=== PATIENT | female | born 1985 ===

== ENCOUNTER 2017-05-05 16:15 | Inpatient (IN) | payer OTHER ==
--- NOTE | 2017-05-05 16:34 | ED PDOC ---
HPI: Psych/Substance Abuse Time Seen by Provider: 05/05/17 16:21 Chief Complaint (Nursing): Psychiatric Evaluation Chief Complaint (Provider): Suicidal thoughts History Per: Patient History/Exam Limitations: no limitations Current Symptoms Are (Timing): Still Present Additional Complaint(s): Pt. with suicidal thoughts, stating she wants to be with her mother, who Aug 2. Pt. denies any chest pain, dyspnea, weakness, pain, homicidal thoughts. No drugs or etoh. No meds to hurt self. Past Medical History Reviewed: Nursing Documentation, Vital Signs Vital Signs: Last Vital Signs Temp 100.1 F H 05/05/17 16:17 Pulse 98 H 05/05/17 16:17 Resp 16 05/05/17 16:17 BP 156/86 H 05/05/17 16:17 Pulse Ox 98 05/05/17 16:17 - Medical History PMH: No Chronic Diseases - Surgical History Surgical History: No Surg Hx - Family History Family History: States: Unknown Family Hx - Social History Current smoker - smoking cessation education provided: No Alcohol: None Drugs: Denies - Home Medications Home Medications: Ambulatory Orders Medication Instructions Recorded Cephalexin [cephalexin] 500 mg PO BID #20 cap 01/19/15 Ibuprofen [Motrin] 600 mg PO Q8 #30 tab 01/19/15 - Allergies Allergies/Adverse Reactions: Allergies Allergy/AdvReac Type Severity Reaction Status Date / Time No Known Allergies Allergy Verified 05/05/17 16:17 Review of Systems Constitutional: Negative for: Weakness Eyes: Negative for: Vision Change ENT: Negative for: Nose Pain, Nose Discharge, Nose Congestion Cardiovascular: Negative for: Chest Pain Respiratory: Negative for: Cough, Shortness of Breath Gastrointestinal: Negative for: Nausea, Vomiting, Abdominal Pain, Diarrhea Genitourinary Female: Negative for: Dysuria Musculoskeletal: Negative for: Neck Pain, Shoulder Pain Skin: Negative for: Rash Neurological: Negative for: Weakness, Numbness Psych: Positive for: Suicidal ideation Physical Exam - Reviewed Nursing Documentation Reviewed: Yes Vital Signs Reviewed: Yes - Physical Exam Appears: Positive for: Non-toxic, No Acute Distress Head Exam: Positive for: ATRAUMATIC, NORMAL INSPECTION, NORMOCEPHALIC Skin: Positive for: Normal Color, Warm, DRY Eye Exam: Positive for: EOMI, Normal appearance, PERRL ENT: Positive for: Normal ENT Inspection Neck: Positive for: Normal, Painless ROM Cardiovascular/Chest: Positive for: Regular Rate, Rhythm Respiratory: Positive for: CNT, Normal Breath Sounds Back: Positive for: Normal Inspection. Negative for: L CVA Tenderness, R CVA Tenderness Extremity: Positive for: Normal ROM. Negative for: Tenderness, Pedal Edema Neurologic/Psych: Positive for: Alert, Oriented - ECG O2 Sat by Pulse Oximetry: 98 Pulse Ox Interpretation: Normal - Progress ED Course And Treament: 1839: Stable. Crisis saw pt. Will admit. Medically stable for eval. Disposition - Clinical Impression Clinical Impression: Depression - Patient ED Disposition Is Patient to be Admitted: Yes - Disposition Disposition Time: 18:48 Condition: STABLE Forms: [employer] (Latvian) - Pt Status Changed To: Hospital Disposition Of: Inpatient - Admit Certification Admit to Inpatient:: After my assessment, the patient will require hospitalization for at least two midnights. This is because of the severity of symptoms shown, intensity of services needed, and/or the medical risk in this patient being treated as an outpatient. - POA Present On Arrival: None
[2017-05-05 19:09] LABS: BASO # 0.1 K/uL (0.0-0.2); BASO % 0.6 % (0.0-2.0); EOS # 0.1 K/uL (0.0-0.7); EOS % 0.4 % (0.0-4.0); LYMPH # 2.4 K/uL (1.0-4.3); MEAN CELL VOLUME 82.5 fl (81.0-99.0); MEAN CORPUSCULAR HEMOGLOBIN 26.3 pg (27.0-31.0); MEAN CORPUSCULAR HGB CONC 31.9 g/dL (33.0-37.0); MEAN PLATELET VOLUME 7.8 fl (7.2-11.7); MONO # 0.9 K/uL (0.0-0.8); MONO % 6.2 % (0.0-10.0); NEUT # 10.6 K/uL (1.8-7.0); NEUT % 75.8 % (50.0-75.0); RED CELL DISTRIBUTION WIDTH 16.4 % (11.5-14.5)
[2017-05-05 19:21] LABS: ALCOHOL SERUM < 10 mg/dl (0-10); BLOOD UREA NITROGEN 11 mg/dl (7-17); CALCIUM 8.8 mg/dL (8.4-10.2); CARBON DIOXIDE 24 mmol/L (22-30); CHLORIDE 105 mmol/L (98-107); GFR AFRICAN-AMERICAN > 60; GLUCOSE,RANDOM 107 mg/dL (65-105); POTASSIUM 3.9 MMOL/L (3.6-5.0); SODIUM 136 mmol/l (132-148)
[2017-05-05] MEDS ORDERED: Alum-Mag Hydrox-Simethicone Susp (30 mL) PO PRN (21:35)
[2017-05-05] MEDS ORDERED: DiphenhydrAMINE 50 mg/ml Inj IM PRN (21:35)
[2017-05-05] MEDS ORDERED: Magnesium Hydroxide Susp 30 ml UD PO PRN (21:35)
--- NOTE | 2017-05-05 22:03 | PCM.BM ---
<Alpesh Blankenshipar - Last Filed: 05/05/17 22:00> Treatment Plan Problems - Problems identified on initial assessmt Suicidal Ideation Date Initiated: 05/05/17 Time Initiated: 22:01 Assessment reference: NA Status: Active Priority: 1 Self Harm Date Initiated: 05/05/17 Time Initiated: 22:01 Assessment reference: NA Status: Active Priority: 2 Ineffective Coping Date Initiated: 05/05/17 Time Initiated: 22:02 Assessment reference: NA Status: Active Priority: 3 Treatment assets and liabiliti Patient Assests: cooperative, educated Patient Liabilities: live alone, poor support system - Milieu Protocol Maintain good personal hygiene: daily Encourage regular showers, daily Remind patient to perform daily oral care Maintain personal safety: every shift Educate patient to report safety concerns to staff, every shift Monitor environment for contraband/sharps Medication safety: Monitor for expected outcome, potential side effects: every shift, Assess barriers to learning: every shift, Assess readiness for medication education: every shift Discharge/Continuing Care - Education Needs Education Needs: Patient Medication, Patient Coping Skills, Patient Community resources, Patient Activities of Daily Living - Discharge Discharge Criteria: Free of Suicidal thoughts, Normal sleep pattern, Ability to care for self Discharge to:: Home <Javan Hanson - Last Filed: 05/07/17 15:32> Family Contact Family involvement: Famliy/SO not involved Family contact: Patient declines to allow family contact at present - Outside Agency Agency 1 Agency contact name: [facility] Agency contact number: [phone] <Tawnya Daniels - Last Filed: 05/10/17 10:14> Treatment assets and liabiliti Patient Assests: adapts well, cooperative, insightful, motivated, resourceful, self-reliant, ADL independent, physically healthy, negotiates basic needs, financial stabiity Patient Liabilities: live alone, poor support system, other (recent loss of mother) Family Contact Family involvement: Famliy/SO not involved Family contact: Patient declines to allow family contact at present - Goals for Treatment Patient goals for treatment: Patient encouraged to attend 3-4 groups/weekly to identify contributing factors to worsening depression/SI, develop effective coping skills and improve insight. Patient to be provided with referral for appropriate level of aftercare to ensure saftey in the community and reduce risk of future hospitalizations. Discharge/Continuing Care - Education Needs Education Needs: Patient Medication, Patient Diagnosis/Disease Process, Patient Coping Skills, Patient Community resources, Patient Aftercare Safety Plan - Discharge Discharge Criteria: Tolerates medication w/o severe side effects, Free of Suicidal thoughts, Normal sleep pattern, Ability to care for self
[2017-05-06 09:36] LABS: T4 8.06 ug/dl (5.5-11.0)
[2017-05-06 09:49] LABS: THYROID STIMULATING HORMONE 1.88 mIU/ML (0.46-4.68)
--- NOTE | 2017-05-06 11:35 | CP.PCM.CON ---
History of Present Illness - History of Present Illness History of Present Illness: Reason for Consult: per hospital protocol CC: feeling sad after I lost my mom HPI 31 year old female with PMH SOLUTION STRATEGIST shunt, Neuro Dr. Parker, presented to the ER after having suicidal ideations, stating she wanted to be with her mom who on April 21, about 15 days ago. Patient states she continues to feel sad and alone, and came to the ER because she was having those thoughts. She has no other complaints, and is currently HD stable. NAD. ROS: per HPI, 12 systems reviewed and negative PMH: SOLUTION STRATEGIST shunt, sees Dr. Parker PSH: SOLUTION STRATEGIST shunt, sees Dr. Parker FH: breast and uterine CA SH: denies tobacco, ETOH, IVDU Meds: as below Allergies: NKDA Vitals: reviewed and currently stable Exam: GEN: WDWN, alert, cooperative HEENT: NCAT, PERRL, EOMI NECK: supple, no JVD, no lymphadenopathy CARDIAC: +S1S2 RRR LUNG: CTAB No WRR ABD: SOFT NT ND BSX4 NO MASSES NO HSM EXT: +pedal pulses, equal strength NEURO: AAOx3 SKIN warm, dry PSYCH tearful, depressed mood, normal affect Labs: 05/05/17 19:00 05/05/17 19:00 Active Medications: 05/05/17 21:35 Acetaminophen [Tylenol 325mg tab] 650 mg PO Q4 PRN Aluminum Hydroxide/Magnesium [Maalox Plus 30 ml] 30 ml PO Q4 PRN DiphenhydrAMINE [Benadryl] 50 mg IM Q6 PRN DiphenhydrAMINE [Benadryl] 50 mg PO HS PRN DiphenhydrAMINE [Benadryl] 50 mg PO Q6 PRN Haloperidol Lactate [Haldol] 5 mg IM Q4 PRN Haloperidol [Haldol] 5 mg PO Q4 PRN LORazepam [Ativan] 2 mg IM Q4 PRN LORazepam [Ativan] 2 mg PO Q4 PRN Magnesium Hydroxide [Milk Of Magnesia] 30 ml PO HS PRN Assessment and Plan: 31 year old female with PMH SOLUTION STRATEGIST shunt, Neuro Dr. Parker, presented to the ER after having suicidal ideations, stating she wanted to be with her mom who on April 21, about 15 days ago. Patient states she continues to feel sad and alone, and came to the ER because she was having those thoughts. She has no other complaints, and is currently HD stable. NAD. Depression/Grieving Management per psychiatry team Past Patient History - Past Social History Alcohol: None Drugs: Denies - CARDIAC Hx Cardiac Disorders: No - PULMONARY Hx Respiratory Disorders: No Hx Tuberculosis: No - NEUROLOGICAL HX Cerebrovascular Accident: No Hx Meningitis: Yes Hx Seizures: No Other/Comment: SOLUTION STRATEGIST shunt last time was changed 2001 - HEENT Hx HEENT Problems: No - RENAL Hx Chronic Kidney Disease: No - ENDOCRINE/METABOLIC Hx Endocrine Disorders: No - HEMATOLOGICAL/ONCOLOGICAL Hx Blood Disorders: No Hx Cancer: No Hx Human Immunodeficiency Virus (HIV): No - INTEGUMENTARY Hx Dermatological Problems: No - MUSCULOSKELETAL/RHEUMATOLOGICAL Hx Musculoskeletal Disorders: No - GASTROINTESTINAL Hx Gastrointestinal Disorders: No - GENITOURINARY/GYNECOLOGICAL Hx Genitourinary Disorders: No Hx Sexually Transmitted Disorders: No - PSYCHIATRIC Hx Substance Use: No - SURGICAL HISTORY Hx Surgeries: Yes Hx Herniorrhaphy: Yes Other/Comment: SOLUTION STRATEGIST shunt - Left - ANESTHESIA Hx Anesthesia: Yes Hx Anesthesia Reactions: No Hx Malignant Hyperthermia: No Meds Allergies/Adverse Reactions: Allergies Allergy/AdvReac Type Severity Reaction Status Date / Time No Known Allergies Allergy Verified 05/05/17 16:17 - Medications Medications: Current Medications Acetaminophen (Tylenol 325mg Tab) 650 mg PO Q4 PRN PRN Reason: for pain 4-7 Al Hydrox/Mg Hydrox/Simethicone (Maalox Plus 30 Ml) 30 ml PO Q4 PRN PRN Reason: Dyspepsia Diphenhydramine HCl (Benadryl) 50 mg PO Q6 PRN PRN Reason: Extrapyramidal Symptoms Diphenhydramine HCl (Benadryl) 50 mg IM Q6 PRN PRN Reason: Extrapyramidal S/S Unable PO Diphenhydramine HCl (Benadryl) 50 mg PO HS PRN PRN Reason: Sleep Haloperidol (Haldol) 5 mg PO Q4 PRN PRN Reason: Agitation Haloperidol Lactate (Haldol) 5 mg IM Q4 PRN PRN Reason: Agitation, Unable to Take PO Lorazepam (Ativan) 2 mg PO Q4 PRN PRN Reason: Anxiety/Agitation Lorazepam (Ativan) 2 mg IM Q4 PRN PRN Reason: Anxiety/Agitation,Unable PO Magnesium Hydroxide (Milk Of Magnesia) 30 ml PO HS PRN PRN Reason: Constipation Results - Vital Signs Recent Vital Signs: Last Vital Signs Temp 98.1 F 05/06/17 09:13 Pulse 76 05/06/17 09:13 Resp 18 05/06/17 09:13 BP 119/67 05/06/17 09:13 Pulse Ox 100 05/05/17 19:36 - Labs Result Diagrams: 05/05/17 19:00 05/05/17 19:00 Labs: Laboratory Results - last 24 hr 05/05/17 05/05/17 05/05/17 19:00 19:00 19:10 WBC 14.0 H RBC 4.73 Hgb 12.5 Hct 39.0 MCV 82.5 MCH 26.3 L MCHC 31.9 L RDW 16.4 H Plt Count 245 MPV 7.8 Neut % (Auto) 75.8 H Lymph % (Auto) 17.0 L Antelope % (Auto) 6.2 Eos % (Auto) 0.4 Baso % (Auto) 0.6 Neut # 10.6 H Lymph # 2.4 Antelope # 0.9 H Eos # 0.1 Baso # 0.1 Sodium 136 Potassium 3.9 Chloride 105 Carbon Dioxide 24 Anion Gap 11 BUN 11 Creatinine 0.8 Est GFR ( Amer) > 60 Est GFR (Non-Af Amer) > 60 Random Glucose 107 H Calcium 8.8 Triglycerides Cholesterol LDL Cholesterol Direct HDL Cholesterol Thyroxine (T4) TSH 3rd Generation Urine Opiates Screen Negative Urine Methadone Screen Negative Ur Barbiturates Screen Negative Ur Phencyclidine Scrn Negative Ur Amphetamines Screen Negative U Benzodiazepines Scrn Negative U Oth Cocaine Metabols Negative U Cannabinoids Screen Negative Alcohol, Quantitative < 10 05/06/17 08:30 WBC RBC Hgb Hct MCV MCH MCHC RDW Plt Count MPV Neut % (Auto) Lymph % (Auto) Antelope % (Auto) Eos % (Auto) Baso % (Auto) Neut # Lymph # Antelope # Eos # Baso # Sodium Potassium Chloride Carbon Dioxide Anion Gap BUN Creatinine Est GFR ( Amer) Est GFR (Non-Af Amer) Random Glucose Calcium Triglycerides 140 Cholesterol 230 H LDL Cholesterol Direct 173 H HDL Cholesterol 36 Thyroxine (T4) 8.06 TSH 3rd Generation 1.88 Urine Opiates Screen Urine Methadone Screen Ur Barbiturates Screen Ur Phencyclidine Scrn Ur Amphetamines Screen U Benzodiazepines Scrn U Oth Cocaine Metabols U Cannabinoids Screen Alcohol, Quantitative
--- NOTE | 2017-05-06 11:59 | PCM.PSYCH ---
Initial Psychiatric Evaluation - Initial Psychiatric Evaluation Type of Admission: Voluntary Legal Status: Capacity Chief Complaint (in patient's own words): i don't see the reason to live Patient's Reaction to Hospitalization: tearful, cooperative History of Present Illness and Precipitating Events: 31 yo female, no previous psychiatric history. pts mother who was her herrera support, from complications of cancer 04/21/17. pt has subsequently become depressed, dysphoric, tearful and unable to concentrate. she states she feels tired all the time. she denies change in sleep or appetite. she reports talking to her mother but not hearing her mother's voice or having any psychotic symptoms. she has no manic symptoms. she has not been using drugs or alcohol. she reports passive suicidal thoughts and cannot see a reason to keep living anymore. pt had difficulty when her aunt when pt was 11 years old. pt was referred by her work to therapy and was sent to the ER after her first therapy appointment. Current Medications: Active Medications Generic Name Dose Route Start Last Admin Trade Name Freq PRN Reason Stop Dose Admin Acetaminophen 650 mg 05/05/17 21:35 Tylenol 325mg Tab PO Q4 PRN for pain 4-7 Al Hydrox/Mg Hydrox/Simethicone 30 ml 05/05/17 21:35 Maalox Plus 30 Ml PO Q4 PRN Dyspepsia Diphenhydramine HCl 50 mg 05/05/17 21:35 Benadryl PO Q6 PRN Extrapyramidal Symptoms Diphenhydramine HCl 50 mg 05/05/17 21:35 Benadryl IM Q6 PRN Extrapyramidal S/S Unable PO Diphenhydramine HCl 50 mg 05/05/17 21:35 Benadryl PO HS PRN Sleep Haloperidol 5 mg 05/05/17 21:35 Haldol PO Q4 PRN Agitation Haloperidol Lactate 5 mg 05/05/17 21:35 Haldol IM Q4 PRN Agitation, Unable to Take PO Lorazepam 2 mg 05/05/17 21:35 Ativan PO Q4 PRN Anxiety/Agitation Lorazepam 2 mg 05/05/17 21:35 Ativan IM Q4 PRN Anxiety/Agitation,Unable PO Magnesium Hydroxide 30 ml 05/05/17 21:35 Milk Of Magnesia PO HS PRN Constipation Sertraline HCl 25 mg 05/06/17 12:00 Zoloft PO DAILY ANGELIC Past Psychiatric History - Past Psychiatric History Previous Treatment History: None History of Abuse: denies History of ETOH/Drug Use: denies History of Family Illness: denies Pertinent Medical Hx (Current Medical&Sleep Prob, Allergies): Allergies Allergy/AdvReac Type Severity Reaction Status Date / Time No Known Allergies Allergy Verified 05/05/17 16:17 No Known Home Med 05/05/17 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 Review of Systems - Psychiatric Psychiatric: As Per HPI Mental Status Examination - Personal Presentation Personal Presentation: Looks stated age - Affect Affect: Depressed (tearful) - Motor Activity Motor Activity: Calm - Reliability in Providing Information Reliability in Providing Information: Good - Speech Speech: Organized - Mood Mood: Depressed - Formal Thought Process Formal Thought Process: No Impairment - Obsessions/Compulsions Obsessions: No Compulsions: No - Cognitive Functions Orientation: Person, Place, Situation, Time Sensorium: Alert Attention/Concentration: Attentive Abstract Thinking: [place] Estimate of Intelligence: Average Judgement: Intact, as evidence by: Insight regarding need for hospitalization Memory: Recent intact, as evidence by: Ability to recall events of the day, Remote intact, as evidenced by: Abilit to recall sig. life events - Risk Risk: Suicidal (passive thoughts, no intent or plan), Diminished functioning - Strength & Assets Inventory Strength & Assets Inventory: Intelligence, Employment history - Limitations Limitations: Living alone DSM 5 DX - DSM 5 DSM 5 Diagnosis: major depression single episode - Recommended/Plan of Treatment Treatment Recommendations and Plan of Treatment: admit to 3 for safety and observation gather collateral information provide supportive therapy adjust medications- start zoloft 25 mg daily. hospitalist consult disposition planning Projected ELOS: 3-5 days Discharge Plan and Discharge Criteria: fair - Smoking Cessation Smoking Cessation Initiated: No
--- NOTE | 2017-05-07 13:29 | PCM.PYCHPN ---
Psychiatric Progress Note - Psychiatric Progress Note Patient seen today, length of contact: discussed with team Patient Chief Complaint: i am okay now Problems Identified/Issues Discussed: pt reports fair sleep. no c/o medication side effects. seems more comfortable around her peers. she is participating in groups. Medication Change: No Medical Record Reviewed: Yes Mental Status Examination - Cognitive Function Orientation: Person, Place, Situation, Time Memory: Intact Attention: WNL Concentration: WNL Association: WNL Fund of Knowledge: [facility] Decription of patient's judgement and insights: fair - Mood Mood: Depressed - Affect Affect: Depressed (tearful) - Speech Speech: Appropriate - Formal Thought Process Formal Thought Process: No Impairment - Suicidal Ideation Suicidal Ideation: No - Homicidal Ideation Homicidal Ideation: No Goal/Treatment Plan - Goal/Treatment Plan Need for Continued Stay: Remain at risks for inpatient hospitalization, Severe functional impairment Progress Toward Problem(s) and Goals/Treatment Plan: majpr depression continue zoloft t/c incrasing to 50mg disposition planning Estimated Date of D/C: 05/10/17
--- NOTE | 2017-05-08 10:01 | PCM.PYCHPN ---
Psychiatric Progress Note - Psychiatric Progress Note Patient seen today, length of contact: discussed with team Patient Chief Complaint: pt still feels depressed and mourning the mother's and still is internally preoccupied with anhedonia and flat affect .pt denies suicidal ideation .pt wants to go home Problems Identified/Issues Discussed: admitted for severe depression and suicidal ideation. DSM 5 Symptoms Update: major depression Medication Change: No Medical Record Reviewed: Yes Mental Status Examination - Cognitive Function Orientation: Person, Place, Situation, Time Memory: Intact Attention: WNL Concentration: WNL Association: WNL Fund of Knowledge: WNL - Mood Mood: Depressed - Affect Affect: Depressed (tearful) - Speech Speech: Appropriate - Formal Thought Process Formal Thought Process: No Impairment - Suicidal Ideation Suicidal Ideation: No - Homicidal Ideation Homicidal Ideation: No Goal/Treatment Plan - Goal/Treatment Plan Need for Continued Stay: Remain at risks for inpatient hospitalization, Severe functional impairment Progress Toward Problem(s) and Goals/Treatment Plan: will increase zoloft to stabilize the pt and d/c planning as per dr de la rosa Estimated Date of D/C: 05/10/17
[2017-05-09 09:23] VITALS: RESP 20
--- NOTE | 2017-05-09 13:22 | PCM.PYCHPN ---
Psychiatric Progress Note - Psychiatric Progress Note Patient seen today, length of contact: discussed with team Patient Chief Complaint: pt still feels depressed and mourning the mother's and still is internally preoccupied with anhedonia and flat affect .pt denies suicidal ideation .pt wants to go home pt has finally taken the 48 hr letter back and wants to stay to be stabilized. Problems Identified/Issues Discussed: admitted for severe depression and suicidal ideation. Medication Change: No Medical Record Reviewed: Yes Mental Status Examination - Cognitive Function Orientation: Person, Place, Situation, Time Memory: Intact Attention: WNL Concentration: WNL Association: WNL Fund of Knowledge: WNL - Mood Mood: Depressed - Affect Affect: Depressed (tearful) - Speech Speech: Appropriate - Formal Thought Process Formal Thought Process: No Impairment - Suicidal Ideation Suicidal Ideation: No - Homicidal Ideation Homicidal Ideation: No Goal/Treatment Plan - Goal/Treatment Plan Need for Continued Stay: Remain at risks for inpatient hospitalization, Severe functional impairment Progress Toward Problem(s) and Goals/Treatment Plan: cruz continue to titrate zoloft as needed and monitor for suicidal thoughts Estimated Date of D/C: 05/10/17
[2017-05-09 17:05] VITALS: BP 145/82; PULSE 81; TEMP 98.2; O2SAT 99
--- NOTE | 2017-05-10 09:35 | PCM.PYCHDC ---
Mental Status Examination - Mental Status Examination Orientation: Person, Place, Situation, Time Memory: Intact Mood: Depressed Affect: Broad Speech: Appropriate Attention: WNL Concentration: WNL Association: WNL Fund of Knowledge: WNL Formal Thought Process: No Impairment Description of patient's judgement and insight: fair Psychotic Thoughts and Behaviors: denies a/v hallucinations Suicidal Ideation: No Current Homicidal Ideation?: No Discharge Summary - Discharge Note Reason for Hospitalization: tearful, cooperative Psychiatric History (includes Medical, Family, Personal Hx): no previous psychiatric treatment/hospitalizations Consultations:: List each consultation separately and include: 1. Reason for request. 2. Findings. 3. Follow-up Consultations: seen by the hospitalist Summary of Hospital Course include:: 1. Description of specific treatment plan utilized for patients during their course of treatmen. 2. Summarize the time- course for resolution of acute symptoms and/or regressed behaviors. 3. Describe issues identified and worked on during hospitalization. 4. Describe medication utilized. 5. Describe medical problems identified and treated. 6. Reassessment of suicide risk Summary of Hospital Course: 31 yo female, no previous psychiatric history. pts mother who was her herrera support, from complications of cancer 04/21/17. pt has subsequently become depressed, dysphoric, tearful and unable to concentrate. she states she feels tired all the time. she denies change in sleep or appetite. she reports talking to her mother but not hearing her mother's voice or having any psychotic symptoms. she has no manic symptoms. she has not been using drugs or alcohol. she reports passive suicidal thoughts and cannot see a reason to keep living anymore. pt had difficulty when her aunt when pt was 11 years old. pt was referred by her work to therapy and was sent to the ER after her first therapy appointment. hospital course pt was admitted to [facility] and oriented to the unit. pt was placed on routine safety protocols. pt started on medication to target her depression. pt tolerated the medication with an improvement in her mood. she signed and then retracted a 48 hour notice. she was agreeable to referral to outpt treatment. at the time of discharge she was denying any suicidal or homicidal thoughts/ plans or intent. - Final Diagnosis (DSM 5) Condition upon Discharge: STABLE DSM 5: major depression single episode moderate Disposition: HOME/ ROUTINE Follow-up Treatment Plan: follow up with aftercare as directed take medication as prescribed do not use alcohol, tobacco or other illicit substances call 911 if any suicidal or homicidal thoughts. Prescriptions/Medication Reconciliation: Sertraline [Zoloft] 50 mg PO DAILY #30 tab - Smoking Cessation Smoking Cessation Medication prescribed: No - Antipsychotic Medications Pt discharged on 2 or more routine antipsychotic medications: No
== END 2017-05-10 15:53 | disposition home or self-care (01) | DRG 885 ==
LOC: EEVIPCON 16:15 → H.ER 16:15 → H.ERHOLD 18:48 → H.PSYCH 20:49
PROVIDERS: ADMIT Psychiatry & Neurology Psychiatry; ATTEND Psychiatry & Neurology Psychiatry
PROC: GZHZZZZ Group Psychotherapy (ICD-10-PCS; principal; 2017-05-05)
PROC: GZ58ZZZ Individual Psychotherapy, Cognitive-Behavioral (ICD-10-PCS; 2017-05-05)
DX: F32.1 Major depressive disorder, single episode, moderate (principal); R45.851 Suicidal ideations; Z86.61 Personal history of infections of the central nervous system; Z98.2 Presence of cerebrospinal fluid drainage device

== ENCOUNTER 2017-05-17 12:58 | Inpatient (IN) | payer OTHER ==
--- NOTE | 2017-05-17 15:20 | ED PDOC ---
HPI: Psych/Substance Abuse Time Seen by Provider: 05/17/17 13:06 Chief Complaint (Nursing): Psychiatric Evaluation Chief Complaint (Provider): Psychiatric evaluation History Per: Patient History/Exam Limitations: no limitations Onset/Duration Of Symptoms: Days Current Symptoms Are (Timing): Still Present Suicide/Self Injury Attempted (Context): Cut Wrists Associated Symptoms: Depression, Suicidal Thoughts, Suicidal Plan Additional Complaint(s): The pt is a 31yo female, PMHX of depression, EXCEPTIONAL NEEDS TEACHER shunt, presents to the ED for evaluation of depression and suicidal ideation. Patient is currently accompanied by her co-worker. The patient states she has been depressed and is suicidal with a specific plan; patient reports she has used a box annealer to cut her left forearm. Of note, pt was recently admitted to [facility] in this facility due to depression. Pt offers no additional medical complaints. Past Medical History Reviewed: Historical Data, Nursing Documentation, Vital Signs - Medical History PMH: Depression Denies: Diabetes, Hepatitis, HIV, HTN, Chronic Kidney Disease, Seizures, Sexually Transmitted Disease - Surgical History Other surgeries: EXCEPTIONAL NEEDS TEACHER Shunt - Family History Family History: States: Unknown Family Hx - Immunization History Hx Tetanus Toxoid Vaccination: No Hx Influenza Vaccination: No Hx Pneumococcal Vaccination: No - Home Medications Home Medications: Ambulatory Orders Medication Instructions Recorded Sertraline [Zoloft] 50 mg PO DAILY #30 tab 05/10/17 - Allergies Allergies/Adverse Reactions: Allergies Allergy/AdvReac Type Severity Reaction Status Date / Time No Known Allergies Allergy Verified 05/17/17 13:15 Review of Systems ROS Statement: Except As Marked, All Systems Reviewed And Found Negative Psych: Positive for: Depression, Suicidal ideation Physical Exam - Reviewed Nursing Documentation Reviewed: Yes Vital Signs Reviewed: Yes - Physical Exam Appears: Positive for: Non-toxic, Uncomfortable (tearful) Head Exam: Positive for: ATRAUMATIC, NORMAL INSPECTION, NORMOCEPHALIC Skin: Positive for: Normal Color Eye Exam: Positive for: Normal appearance Neck: Positive for: Normal, Supple Cardiovascular/Chest: Positive for: Regular Rate, Rhythm Respiratory: Positive for: Normal Breath Sounds. Negative for: Respiratory Distress Extremity: Positive for: Normal ROM, Other (multiple minor lacerations noted to left forearm, no active bleeding). Negative for: Deformity Neurologic/Psych: Positive for: Alert, Oriented. Negative for: Motor/Sensory Deficits - Laboratory Results Result Diagrams: 05/17/17 16:40 05/17/17 16:40 Medical Decision Making Medical Decision Making: Time: 1330 Impression: Depression, suicidal ideation Plan: -- Crisis evaluation for possible admission -- Reassess Vital signs are stable. Labs reviewed. In my opinion there are no current acute medical conditions that contraindicate the placement of this patient in a psychiatric unit. Scribe Attestation: Documented by Mary Quiroga, acting as a scribe for Lake Chappell MD. Provider Scribe Attestation: All medical record entries made by the Scribe were at my direction and personally dictated by me. I have reviewed the chart and agree that the record accurately reflects my personal performance of the history, physical exam, medical decision making, and the department course for this patient. I have also personally directed, reviewed, and agree with the discharge instructions and disposition. ED OBSERVATION Date of observation admission: 05/17/17 Time of observation admission: 15:54 - Observation admission statement Patient is being placed in observation because:: [place] [facility] [place] - Progress Note Progress Note: 05/17/17 15:54 Pt seen and evaluated by crisis team. Pt currently [place] [facility] [place] 05/17/17 16:23 Pt re-evaluated by crisis team and is to be admitted to this facility under Dr. Armenta with a diagnosis of depression. Disposition - Clinical Impression Clinical Impression: Depression - Patient ED Disposition Is Patient to be Admitted: Yes Doctor Will See Patient In The: Hospital Counseled Patient/Family Regarding: Studies Performed, Diagnosis - Disposition Disposition Time: 15:54 Condition: FAIR - Pt Status Changed To: Hospital Disposition Of: Inpatient - Admit Certification Admit to Inpatient:: After my assessment, the patient will require hospitalization for at least two midnights. This is because of the severity of symptoms shown, intensity of services needed, and/or the medical risk in this patient being treated as an outpatient. - POA Present On Arrival: None
[2017-05-17 16:46] LABS: BASO # 0.1 K/uL (0.0-0.2); BASO % 0.4 % (0.0-2.0); EOS % 0.2 % (0.0-4.0); HEMATOCRIT 41.4 % (34.0-47.0); LYMPH # 2.1 K/uL (1.0-4.3); LYMPH % 14.3 % (20.0-40.0); MEAN CELL VOLUME 83.5 fl (81.0-99.0); MEAN CORPUSCULAR HEMOGLOBIN 26.9 pg (27.0-31.0); MEAN CORPUSCULAR HGB CONC 32.2 g/dL (33.0-37.0); MEAN PLATELET VOLUME 7.5 fl (7.2-11.7); MONO # 0.7 K/uL (0.0-0.8); MONO % 4.8 % (0.0-10.0); NEUT # 11.7 K/uL (1.8-7.0); NEUT % 80.3 % (50.0-75.0); NRBC % 0.1 % (0.0-0.0); RED CELL DISTRIBUTION WIDTH 16.3 % (11.5-14.5); WHITE BLOOD COUNT 14.6 K/uL (4.8-10.8)
[2017-05-17 16:59] LABS: ALCOHOL SERUM < 10 mg/dl (0-10); BLOOD UREA NITROGEN 9 mg/dl (7-17); CALCIUM 9.3 mg/dL (8.4-10.2); CARBON DIOXIDE 24 mmol/L (22-30); CHLORIDE 103 mmol/L (98-107); GFR AFRICAN-AMERICAN > 60; GLUCOSE,RANDOM 125 mg/dL (65-105); POTASSIUM 3.6 MMOL/L (3.6-5.0); SODIUM 141 mmol/l (132-148)
[2017-05-17 18:56] VITALS: RESP 18
[2017-05-17] MEDS ORDERED: Alum-Mag Hydrox-Simethicone Susp (30 mL) PO PRN (20:11)
[2017-05-17] MEDS ORDERED: DiphenhydrAMINE 50 mg/ml Inj IM PRN (20:11)
[2017-05-17] MEDS ORDERED: Magnesium Hydroxide Susp 30 ml UD PO PRN (20:11)
--- NOTE | 2017-05-17 22:09 | PCM.BM ---
<Paris Rene - Last Filed: 05/17/17 22:07> Treatment Plan Problems - Problems identified on initial assessmt Social Isolation Date Initiated: 05/17/17 Time Initiated: 22:07 Assessment reference: NA Status: Active Medication Nonadherance Date Initiated: 05/17/17 Time Initiated: 22:08 Assessment reference: NA Status: Active Treatment assets and liabiliti Patient Assests: adapts well, cooperative, insightful, motivated, resourceful, self-reliant, ADL independent, physically healthy, negotiates basic needs, financial stabiity Patient Liabilities: live alone - Milieu Protocol Maintain good personal hygiene: daily Remind patient to perform daily oral care , daily Assist patient to perform ADL's, every shift Encourage regular showers Maintain personal safety: daily Educate patient to report safety concerns to staff, every shift Monitor environment for contraband/sharps Medication safety: Monitor for expected outcome, potential side effects: daily, Assess barriers to learning: daily, Assess readiness for medication education: every shift <Javan Hanson J - Last Filed: 05/19/17 10:28> Family Contact Family involvement: Famliy/SO not involved Family contact: Patient declines to allow family contact at present - Goals for Treatment Patient goals for treatment: Pt refusing to currently participate in tx planning. "I just want my brain to stop. The thoughts, memories of her and suicidal thoughts." Discharge/Continuing Care - Education Needs Education Needs: Patient Medication, Patient Coping Skills, Patient Community resources, Patient Activities of Daily Living - Discharge Discharge Criteria: Tolerates medication w/o severe side effects, Free of Suicidal thoughts Discharge to:: Home - Treatment Team Participation Was Patient/Family/SO present at Treatment Team Meeting: Yes (Pt was present in team.)
[2017-05-18 08:38] LABS: CHOLESTEROL 256 mg/dL (0-199)
--- NOTE | 2017-05-18 19:42 | PCM.PSYCH ---
Initial Psychiatric Evaluation - Initial Psychiatric Evaluation Type of Admission: Voluntary Chief Complaint (in patient's own words): was at home was remembering mom who last month I wanted to cut myself Patient's Reaction to Hospitalization: pt is verbally agreeable History of Present Illness and Precipitating Events: presented to [facility] via [facility] after presentation for increasing feelings of depression, desire to join her month in [place] who reportedly from cancer last month. pt reports that was in hospital approx. one week ago for depression as well-reports was close to mother , mother had a previous bout of cancer as well, people telling her to move on-not feeling as though people were listening to her or giving her a chance to talk about how she was feeling. Admits was prescribed sertraline and had been taking for about a week stopped approx. 2 days ago "did not think that it were working". Pt. denies previous psychiatric treatment prior to her first admission within the past month and this admission. Pt. was to schedule follow up at [facility] did not. 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 Has some friends for support. Had spent much of her time being with her mother, pt had started using work out videos at home and her mother "had been her biggest cheerleader". Pt has an av shunt which she denies having any issues nor headaches. Denies allergies. Current Medications: Active Medications Generic Name Dose Route Start Last Admin Trade Name Selvin PRN Reason Stop Dose Admin Acetaminophen 650 mg 05/17/17 20:11 Tylenol 325mg Tab PO Q4 PRN Pain, moderate (4-7) Al Hydrox/Mg Hydrox/Simethicone 30 ml 05/17/17 20:11 Maalox Plus 30 Ml PO Q4 PRN Dyspepsia Diphenhydramine HCl 50 mg 05/17/17 20:11 Benadryl IM Q6 PRN Extrapyramidal S/S Unable PO Diphenhydramine HCl 50 mg 05/17/17 20:15 05/17/17 22:47 Benadryl PO 50 mg HS PRN Administration Sleep Haloperidol 5 mg 05/17/17 20:11 Haldol PO Q4 PRN Agitation Haloperidol Lactate 5 mg 05/17/17 20:11 Haldol IM Q4 PRN Agitation, Unable to Take PO Lorazepam 2 mg 05/17/17 20:11 Ativan IM Q4 PRN Anxiety/Agitation,Unable PO Lorazepam 1 mg 05/18/17 13:00 Ativan PO Q4 PRN Anxiety/Agitation Magnesium Hydroxide 30 ml 05/17/17 20:11 Milk Of Magnesia PO HS PRN Constipation Sertraline HCl 50 mg 05/18/17 09:00 05/18/17 12:54 Zoloft PO 50 mg DAILY ANGELIC Administration Past Psychiatric History - Past Psychiatric History Prior Professional Help: inpt admission one week ago within past month [facility] no f/u eap History of Abuse: denies History of ETOH/Drug Use: denies Pertinent Medical Hx (Current Medical&Sleep Prob, Allergies): Allergies Allergy/AdvReac Type Severity Reaction Status Date / Time No Known Allergies Allergy Verified 05/17/17 13:15 Sertraline [Zoloft] 50 mg PO DAILY #30 tab 05/10/17 Review of Systems - Neurological Additional comments: hx of av shunt - Psychiatric Psychiatric: As Per HPI, Abnormal Sleep Pattern, Anxiety, Depression, Suicidal Ideation Additional comments: attempted to cut wrists contracts for safety is near nurse's station expresses regret remorse Mental Status Examination - Personal Presentation Personal Presentation: Looks younger than stated age - Affect Additional comments: somewhat constricted - Motor Activity Motor Activity: Calm, Psychomotor Retardation - Reliability in Providing Information Reliability in Providing Information: Fair - Speech Speech: Organized - Formal Thought Process Formal Thought Process: No Impairment - Obsessions/Compulsions Obsessions: No Compulsions: No - Cognitive Functions Orientation: Person, Place, Situation, Time Sensorium: Alert Attention/Concentration: Attentive Memory: Recent intact, as evidence by: Other - Risk Risk: Suicidal, Self-mutilation - Strength & Assets Inventory Strength & Assets Inventory: Intelligence, Cooperative (mother recently within past month) DSM 5 DX - DSM 5 DSM 5 Diagnosis: admission per attending vital signs and clinical observation per protocol and per status hospitalist consult pt reports that she has trouble sleeping previously responded to benadryl as well reports that does not want to take sertraline ?benefit DID ATTEMPT TO REVIEW WITH PT THAT MEDICATIONS LIKE SERTRALINE TAKE TIME TO WORK-REVIEWED WITH PT REMERON(MIRTAZEPINE) PT VERBALLY AGREEABLE REVIEW MAY HELP WITH DEPRESSION , SLEEP-WATER DURING DAY FOR MOUTH CARE GET UP SLOWLY discharge planning in progress
--- NOTE | 2017-05-19 11:11 | PCM.PYCHPN ---
Psychiatric Progress Note - Psychiatric Progress Note Patient seen today, length of contact: in treatment team Patient Chief Complaint: i want the thoughts to stop Problems Identified/Issues Discussed: pt c/o constant memories of her mother and of having suicidal thoughts. poor sleep. she is irritable today. she agrees she may need to take some time off from her job and get more intensive treatment as an outpatient. she agrees to restart her medications Medication Change: Yes Medical Record Reviewed: Yes Mental Status Examination - Cognitive Function Orientation: Person, Place, Situation, Time Memory: Intact Attention: WNL Concentration: WNL Association: WNL Fund of Knowledge: WN Decription of patient's judgement and insights: fair - Mood Mood: Depressed - Affect Affect: Depressed - Speech Speech: Appropriate - Formal Thought Process Formal Thought Process: No Impairment - Suicidal Ideation Suicidal Ideation: Yes Plan: reports suicidal thoughts, feels safe - Homicidal Ideation Homicidal Ideation: No Goal/Treatment Plan - Goal/Treatment Plan Need for Continued Stay: Remain at risks for inpatient hospitalization, Severe functional impairment Progress Toward Problem(s) and Goals/Treatment Plan: major depression single episode moderate Estimated Date of D/C: 05/24/17
--- NOTE | 2017-05-20 08:56 | PCM.PYCHPN ---
Psychiatric Progress Note - Psychiatric Progress Note Patient seen today, length of contact: discussed with team Patient Chief Complaint: i feel a little better Problems Identified/Issues Discussed: pt states the racing thoughts are improving. she denies side effects with medications. she is sleeping well. she is trying to socialize with peers. she is agreeable to referral to the [facility] program. Medication Change: No Medical Record Reviewed: Yes Mental Status Examination - Cognitive Function Orientation: Person, Place, Situation, Time Memory: Intact Attention: WNL Concentration: WNL Association: WNL Fund of Knowledge: WNL Decription of patient's judgement and insights: fair - Mood Mood: Depressed - Affect Affect: Depressed - Speech Speech: Appropriate - Formal Thought Process Formal Thought Process: No Impairment - Suicidal Ideation Suicidal Ideation: Yes Plan: decreasing intensity - Homicidal Ideation Homicidal Ideation: No Goal/Treatment Plan - Goal/Treatment Plan Need for Continued Stay: Remain at risks for inpatient hospitalization, Severe functional impairment Progress Toward Problem(s) and Goals/Treatment Plan: major depression single episode moderate continue current treatment disposition planning- refer to [facility] program Estimated Date of D/C: 05/24/17
[2017-05-20 18:06] VITALS: O2SAT 100
--- NOTE | 2017-05-21 11:48 | PCM.PYCHPN ---
Psychiatric Progress Note - Psychiatric Progress Note Patient seen today, length of contact: discussed with team Patient Chief Complaint: i have things to take care of Problems Identified/Issues Discussed: pt comes to treatment room with her head down. she states she is tired. she states she wants to go home and "organize things" she will consider retracting her 48 hour notice, but states she needs time to think. she accepts feedback that she seems very depressed still and that team is worried about her lack of supports. she is agreeable to be referred to a support group. she reports the remeron makes her feel tired all morning. Medication Change: Yes Medical Record Reviewed: Yes Mental Status Examination - Cognitive Function Orientation: Person, Place, Situation, Time Memory: Intact Attention: WNL Concentration: WNL Association: WNL Fund of Knowledge: WNL Decription of patient's judgement and insights: fair - Mood Mood: Depressed - Affect Affect: Depressed - Speech Speech: Appropriate - Formal Thought Process Formal Thought Process: No Impairment - Suicidal Ideation Suicidal Ideation: No Plan: she states she is now not having any suicidal thoughts - Homicidal Ideation Homicidal Ideation: No Goal/Treatment Plan - Goal/Treatment Plan Need for Continued Stay: Remain at risks for inpatient hospitalization, Severe functional impairment Progress Toward Problem(s) and Goals/Treatment Plan: major depression single episode moderate continue current treatment will dc remeron as pt feels too sedated with this medication disposition planning- refer to [facility] program Estimated Date of D/C: 05/24/17
[2017-05-21 17:19] VITALS: BP 138/69; PULSE 79; TEMP 97.8
--- NOTE | 2017-05-22 09:48 | PCM.PYCHDC ---
Mental Status Examination - Mental Status Examination Orientation: Person, Place, Situation, Time Memory: Intact Mood: Neutral Affect: Broad Speech: Appropriate Attention: WNL Concentration: WNL Association: WNL Fund of Knowledge: WNL Formal Thought Process: No Impairment Description of patient's judgement and insight: fair insight/judgment Psychotic Thoughts and Behaviors: fair insight Suicidal Ideation: No Current Homicidal Ideation?: No Plan: pt denies any suicidal or homicidal thoughts Discharge Summary - Discharge Note Reason for Hospitalization: depression after her mother's Psychiatric History (includes Medical, Family, Personal Hx): no psychiatric history prior to mother's Consultations:: List each consultation separately and include: 1. Reason for request. 2. Findings. 3. Follow-up Consultations: seen by hospitalist Summary of Hospital Course include:: 1. Description of specific treatment plan utilized for patients during their course of treatmen. 2. Summarize the time- course for resolution of acute symptoms and/or regressed behaviors. 3. Describe issues identified and worked on during hospitalization. 4. Describe medication utilized. 5. Describe medical problems identified and treated. 6. Reassessment of suicide risk Summary of Hospital Course: pt was admitted to [facility] and oriented to the unit. she was started back on her zoloft and she was started on remeron for insomnia. she attended groups. she reported remeron made her too sedated in the morning. this was discontinued and she did not have any further complaints of sleep disturbance. the patient signed a 48 hour notice to leave the hospital. she was encouraged to stay through the weekend to help provide structure, but she insisted on leaving and was exhibiting improvement in her mood and was not presenting as an immediate risk to herself or others. at time of discharge she was denying any suicidal or homicidal thoughts/plans or intent. - Final Diagnosis (DSM 5) Condition upon Discharge: FAIR DSM 5: major depression, single episode moderate with onset after of mother. Disposition: HOME/ ROUTINE Follow-up Treatment Plan: continue current medications follow up with aftercare as directed take medications as prescribed do not use alcohol, tobacco or other illicit substances call 911 if any suicidal or homicidal thoughts. Prescriptions/Medication Reconciliation: Sertraline [Zoloft] 50 mg PO DAILY #30 tab - Smoking Cessation Smoking Cessation Medication prescribed: No - Antipsychotic Medications Pt discharged on 2 or more routine antipsychotic medications: No
== END 2017-05-22 11:55 | disposition home or self-care (01) | DRG 885 ==
LOC: H.ER 12:58 → H.EROBSV 15:53 → OBSVTOIN 17:54 → H.ERHOLD 18:06 → H.PSYCH 19:59
PROVIDERS: ADMIT Psychiatry & Neurology Psychiatry; ATTEND Psychiatry & Neurology Psychiatry
PROC: GZHZZZZ Group Psychotherapy (ICD-10-PCS; principal; 2017-05-17)
PROC: GZ58ZZZ Individual Psychotherapy, Cognitive-Behavioral (ICD-10-PCS; 2017-05-17)
DX: F32.1 Major depressive disorder, single episode, moderate (principal); R45.851 Suicidal ideations; G47.00 Insomnia, unspecified; Z98.2 Presence of cerebrospinal fluid drainage device; Z91.5 Personal history of self-harm

== ENCOUNTER 2018-06-28 23:28 | Emergency (ER) | payer OTHER ==
[2018-06-29] MEDS ORDERED: Tdap Vaccine 0.5 ml Vial (10-64 yrs) IM ONE ×2 (00:43→01:19)
[2018-06-29] MEDS ORDERED: Amoxicillin-Clav 875-125 mg Tab PO STA (00:45)
--- NOTE | 2018-06-29 00:46 | ED PDOC ---
HPI: Skin/Bite Injury Time Seen by Provider: 06/29/18 00:40 Chief Complaint (Nursing): Abnormal Skin Integrity Chief Complaint (Provider): scratches/bites from cat History Per: Patient Onset/Duration Of Symptoms: Days (1) Current Symptoms Are (Timing): Still Present Additional Complaint(s): 32 y/o female presents for evaluation of multiple scratches/bites from her cat, sustained today. Patient states cat has been acting out for one year, but tonglo cat went for her face, which is the first time. Cat up to date on vaccines. Denies fever, drainage from sites, numbness/weakness Past Medical History Reviewed: Historical Data, Nursing Documentation, Vital Signs Vital Signs: Last Vital Signs Temp 98.5 F 06/28/18 23:39 Pulse 111 H 06/28/18 23:39 Resp 17 06/28/18 23:39 BP 126/78 06/28/18 23:39 Pulse Ox 100 06/28/18 23:39 - Medical History PMH: Depression Denies: Diabetes, Hepatitis, HIV, HTN, Chronic Kidney Disease, Seizures, Sexually Transmitted Disease - Family History Family History: States: Unknown Family Hx - Immunization History Hx Tetanus Toxoid Vaccination: No Hx Influenza Vaccination: No Hx Pneumococcal Vaccination: No - Home Medications Home Medications: Ambulatory Orders Medication Instructions Recorded Sertraline [Zoloft] 50 mg PO DAILY #30 tab 05/22/17 Amoxicillin/Clavulanate [Augmentin 1 tab PO Q12 #9 tab 06/29/18 875 MG-125 MG] Azithromycin 250 mg PO DAILY #4 tablet 06/29/18 Naproxen [Naprosyn] 500 mg PO Q12 PRN #20 tablet 06/29/18 - Allergies Allergies/Adverse Reactions: Allergies Allergy/AdvReac Type Severity Reaction Status Date / Time No Known Allergies Allergy Verified 05/17/17 13:15 Review of Systems ROS Statement: Except As Marked, All Systems Reviewed And Found Negative Skin: Positive for: Bruising, Other Physical Exam - Reviewed Nursing Documentation Reviewed: Yes Vital Signs Reviewed: Yes - Physical Exam Appears: Positive for: Well, Non-toxic, No Acute Distress Head Exam: Positive for: ATRAUMATIC, NORMAL INSPECTION, NORMOCEPHALIC Skin: Positive for: Rash (multiple abrasions right side of face. superficial puncture wound left side of face. ) Eye Exam: Positive for: EOMI, PERRL. Negative for: Periorbital swelling, Periorbital tenderness, Conjunctival injection Cardiovascular/Chest: Positive for: Regular Rate, Rhythm Respiratory: Positive for: Normal Breath Sounds Extremity: Positive for: Normal ROM, Other (abrasions palmar right hand proximal 3rd and 4th digits, dorsal right hand 2nd and 3rd digits. Multiple abrasions dorsal right forearm. Bite aimee with ecchymosis volar right forearm. Abrasions palmar left hand base of 2nd and 3rd digits. Abrasions medial and lateral left wrist. FROM bilateral UE. Distal NV intact) Neurologic/Psych: Positive for: Alert, Oriented (x3) - ECG O2 Sat by Pulse Oximetry: 100 - Progress ED Course And Treament: Tetanus, wound care Abrasions irrigated with 250mL NS, bacitracin and bandaged applied Steristrips used to close puncture wound left side of face Patient educated on findings, discharged with rx Azithromycin (dose given in ED), Augmentin (dose given in ED), and Naproxen Advised ice affected areas. Clean affected areas daily. Apply bacitracin daily FOllow up with PMD within 2-3 days Return precautions given Patient requires no further intervention in the ED and is stable for discharge at this time Disposition - Clinical Impression Clinical Impression: Cat bite, Cat scratch - Patient ED Disposition Is Patient to be Admitted: No Counseled Patient/Family Regarding: Diagnosis, Need For Followup, Rx Given - Disposition Disposition: Routine/Home Disposition Time: 02:44 Condition: IMPROVED Prescriptions: Amoxicillin/Clavulanate [Augmentin 875 MG-125 MG] 1 tab PO Q12 #9 tab Azithromycin 250 mg PO DAILY #4 tablet Naproxen [Naprosyn] 500 mg PO Q12 PRN #20 tablet PRN Reason: Pain, Moderate (4-7) Instructions: Animal and Human Bites Forms: [facility] ([place]ian), [facility] ED School/Work Excuse
[2018-06-29] MEDS ORDERED: Amoxicillin-Clav 875-125 mg Tab PO ONE (01:20)
[2018-06-29 02:54] VITALS: BP 131/70; PULSE 87; RESP 16; TEMP 98; O2SAT 96
== END 2018-06-29 02:54 | disposition home or self-care (01) ==
LOC: H.ER 23:28
DX: T14.8XXA Other injury of unspecified body region, initial encounter (principal); W55.01XA Bitten by cat, initial encounter; Z86.59 Personal history of other mental and behavioral disorders; Z79.899 Other long term (current) drug therapy; W55.03XA Scratched by cat, initial encounter; Z23 Encounter for immunization